=== PATIENT | male | born 1955 | race African-American/Black ===

== ENCOUNTER 2017-03-09 17:20 | Emergency (ER) | payer SELFPAY ==
[~2017-03-09] VITALS: Ht 162.6 cm; Wt 86.1 kg
[2017-03-09 17:25] VITALS: TEMP 36.8; Ht 162.6 cm; Wt 86.1 kg
[2017-03-09] MEDS ORDERED: ACET-1256 PO (18:07)
[2017-03-09 18:41] LABS: BASO % 0.2 %; BASO ABS # 0.01 K/uL (0-0.2); COMPLETE YES; EOS % 1.1 %; HEMATOCRIT 42.5 % (42-52); IG% 0.2 %; LYMPH % 46.5 %; LYMPH ABS # 2.13 K/uL (1.2-3.4); MEAN CELL VOLUME 80.2 fL (80-100); MEAN CORPUSCULAR HEMOGLOBIN 25.8 pg (25-34); MEAN CORPUSCULAR HGB CONC 32.2 g/dl (32-36); MEAN PLATELET VOLUME 11.1 fL (7.4-10.4); MONO % 12.2 %; NEUT % 39.8 %; PLATELET COUNT 187 K/uL (130-400); WHITE BLOOD COUNT 4.58 K/uL (4.8-10.8)
[2017-03-09 18:42] LABS: ALT/SGPT 24 U/L (12-78); BLOOD UREA NITROGEN 10 mg/dl (7-18); BUN/CREATININE RATIO 10.4 (10-20); CARBON DIOXIDE 28 mmol/L (21-32); CHLORIDE 105 mmol/L (98-107); GLUCOSE 85 mg/dl (70-99); POTASSIUM 3.7 mmol/L (3.5-5.1); SODIUM 140 mmol/L (136-145)
[2017-03-09 18:47] LABS: ALB/GLOB RATIO 1.1 (0.9-2); ALKALINE PHOSPHATASE 137 U/L (45-117); AST/SGOT 19 U/L (15-37)
--- NOTE | 2017-03-09 20:11 | DIAGNOSTIC IMAGING REPORT ---
RIGHT UPPER EXTREMITY VENOUS DOPPLER ULTRASOUND CLINICAL HISTORY: Right arm pain. COMPARISON STUDY: No previous studies for comparison. FINDINGS: No deep venous thrombus is identified within the right upper extremity. There is an IV within the right antecubital fossa. IMPRESSION: No deep venous thrombus within the right upper extremity. Electronically signed by: Ralf Carrasco M.D. 03/09/2017 8:10 PM Dictated Date/Time: 03/09/2017 8:09 PM
--- NOTE | 2017-03-09 20:26 | DIAGNOSTIC IMAGING REPORT ---
CHEST 1 VW FRONT-NOT PORTABLE CLINICAL HISTORY: Right arm pain. Right-sided neck pain. COMPARISON STUDY: Chest radiograph April 24, 2016. FINDINGS: Lung volumes are at the lower limits of normal. There is no consolidation to suggest pneumonia and there is no evidence of pulmonary edema. Cardiomediastinal silhouette is unremarkable. Pulmonary vascularity is normal. There is no pneumothorax or pleural effusion. IMPRESSION: No acute cardiopulmonary findings. Electronically signed by: Ralf Carrasco M.D. 03/09/2017 8:25 PM Dictated Date/Time: 03/09/2017 8:24 PM
--- NOTE | 2017-03-09 20:28 | DIAGNOSTIC IMAGING REPORT ---
C-SPINE ROUTINE 4 OR 5 VIEWS CLINICAL HISTORY: Right-sided neck pain. Right arm pain. COMPARISON STUDY: No previous studies for comparison. FINDINGS: There is reversal of the normal cervical lordosis. There is no acute fracture or suspicious lesion within the cervical spine. There is moderate disc space narrowing with osteophytosis at C6-C7. There is mild disc space narrowing with osteophytosis at C5-C6. Prevertebral soft tissues are unremarkable. There is mild multilevel facet arthrosis. IMPRESSION: 1. No acute cervical spine fracture. 2. Moderate degenerative disc disease at C6-C7 and C5-C6. Electronically signed by: Ralf Carrasco M.D. 03/09/2017 8:27 PM Dictated Date/Time: 03/09/2017 8:26 PM
[2017-03-09 20:52] VITALS: BP 138/86; PULSE 54; O2SAT 97
--- NOTE | 2017-03-09 20:55 | EMERGENCY ROOM VISIT NOTE ---
History First contact with patient: 17:32 Chief Complaint: ARM PAIN Stated Complaint: BP CHECK History of Present Illness The patient is a 62 year old male who presents to the Emergency Room with complaints of right arm pain. The patient states that he has had pain in his right forearm and his right shoulder/neck. The pain is constant throughout the day and he rates the discomfort a 9/10. The has increased pain with range of motion of the arm. He states it is difficult to sleep due to the pain. He is concerned that his blood pressure could be elevated. He denies a history of hypertension and does not take any medication for blood pressure. He denies injury to the right arm. He denies any numbness or weakness. He denies chest pain, shortness of breath, abdominal pain, nausea or vomiting. Review of Systems A complete 10 point review of systems was reviewed with the patient with pertinent positives and negatives as per history of present illness. All else were negative. Past Medical/Surgical History Medical Problems: (1) DVT (deep venous thrombosis) Family History No pertinent family history Social History Smoking Status: Never Smoker Housing Status: lives with family Occupation Status: employed Current/Historical Medications Scheduled PRN Acetaminophen (Tylenol), 500 MG PO DIRECTED PRN for Pain Allergies Coded Allergies: POLLEN (Verified Allergy, Intermediate, COUGH, ITCHY EYES, RUNNY NOSE, ) Physical Exam Vital Signs Date Time Temp Pulse Resp B/P (MAP) Pulse Ox O2 Delivery O2 Flow Rate FiO2 03/09/17 20:52 54 20 138/86 97 Room Air 03/09/17 18:57 57 16 131/87 97 Room Air 03/09/17 17:25 36.8 75 18 143/103 95 Room Air Physical Exam VITALS: Vitals are noted on the nurse's note and reviewed by myself. Vital signs stable. GENERAL: This is a 62-year-old male, in no acute distress, nondiaphoretic, well- developed well-nourished. SKIN: No erythema, edema or warmth. HEENT: Normocephalic. PERRLA. EOMI. Nares patent. Mucous membranes moist. Neck is supple without nuchal rigidity. HEART: Regular rate and rhythm without murmurs gallops or rubs. LUNGS: Clear to auscultation bilaterally without wheezes, rales or rhonchi. No retractions or accessory muscle use. MUSCULOSKELETAL: Full range of motion of the right upper extremity. Strength 5/ 5. There is no tenderness to palpation of the right arm. There is tenderness over the right trapezius muscle. NEURO: Patient was alert and oriented to person place and time. Medical Decision & Procedures ER Provider Diagnostic Interpretation: CHEST 1 VW FRONT-NOT PORTABLE FINDINGS: Lung volumes are at the lower limits of normal. There is no consolidation to suggest pneumonia and there is no evidence of pulmonary edema. Cardiomediastinal silhouette is unremarkable. Pulmonary vascularity is normal. There is no pneumothorax or pleural effusion. IMPRESSION: No acute cardiopulmonary findings. C-SPINE ROUTINE 4 OR 5 VIEWS FINDINGS: There is reversal of the normal cervical lordosis. There is no acute fracture or suspicious lesion within the cervical spine. There is moderate disc space narrowing with osteophytosis at C6-C7. There is mild disc space narrowing with osteophytosis at C5-C6. Prevertebral soft tissues are unremarkable. There is mild multilevel facet arthrosis. IMPRESSION: 1. No acute cervical spine fracture. 2. Moderate degenerative disc disease at C6-C7 and C5-C6. RIGHT UPPER EXTREMITY VENOUS DOPPLER ULTRASOUND FINDINGS: No deep venous thrombus is identified within the right upper extremity. There is an IV within the right antecubital fossa. IMPRESSION: No deep venous thrombus within the right upper extremity. Laboratory Results 03/09/17 18:10 Red Blood Count 5.30, Mean Corpuscular Volume 80.2, Mean Corpuscular Hemoglobin 25.8, Mean Corpuscular Hemoglobin Concent 32.2, Mean Platelet Volume 11.1, Neutrophils (%) (Auto) 39.8, Lymphocytes (%) (Auto) 46.5, Monocytes (%) (Auto) 12.2, Eosinophils (%) (Auto) 1.1, Basophils (%) (Auto) 0.2, Neutrophils # (Auto ) 1.82, Lymphocytes # (Auto) 2.13, Monocytes # (Auto) 0.56, Eosinophils # (Auto ) 0.05, Basophils # (Auto) 0.01 03/09/17 18:10 Test 03/09/17 18:10 White Blood Count 4.58 K/uL (4.8-10.8) Red Blood Count 5.30 M/uL (4.7-6.1) Hemoglobin 13.7 g/dL (14.0-18.0) Hematocrit 42.5 % (42-52) Mean Corpuscular Volume 80.2 fL (80-100) Mean Corpuscular Hemoglobin 25.8 pg (25-34) Mean Corpuscular Hemoglobin Concent 32.2 g/dl (32-36) Platelet Count 187 K/uL (130-400) Mean Platelet Volume 11.1 fL (7.4-10.4) Neutrophils (%) (Auto) 39.8 % Lymphocytes (%) (Auto) 46.5 % Monocytes (%) (Auto) 12.2 % Eosinophils (%) (Auto) 1.1 % Basophils (%) (Auto) 0.2 % Neutrophils # (Auto) 1.82 K/uL (1.4-6.5) Lymphocytes # (Auto) 2.13 K/uL (1.2-3.4) Monocytes # (Auto) 0.56 K/uL (0.11-0.59) Eosinophils # (Auto) 0.05 K/uL (0-0.5) Basophils # (Auto) 0.01 K/uL (0-0.2) RDW Standard Deviation 38.1 fL (36.4-46.3) RDW Coefficient of Variation 13.1 % (11.5-14.5) Immature Granulocyte % (Auto) 0.2 % Immature Granulocyte # (Auto) 0.01 K/uL (0.00-0.02) Anion Gap 7.0 mmol/L (3-11) Est Creatinine Clear Calc Drug Dose 75.8 ml/min Estimated GFR () 93.1 Estimated GFR (Non- 80.3 BUN/Creatinine Ratio 10.4 (10-20) Calcium Level 9.0 mg/dl (8.5-10.1) Total Bilirubin 0.3 mg/dl (0.2-1) Aspartate Amino Transf (AST/SGOT) 19 U/L (15-37) Alanine Aminotransferase (ALT/SGPT) 24 U/L (12-78) Alkaline Phosphatase 137 U/L (45-117) Troponin I < 0.015 ng/ml (0-0.045) Total Protein 7.4 gm/dl (6.4-8.2) Albumin 3.8 gm/dl (3.4-5.0) Globulin 3.6 gm/dl (2.5-4.0) Albumin/Globulin Ratio 1.1 (0.9-2) ECG Rate (beats per minute): 55 Rhythm: sinus bradycardia Findings: ST elevation (throughout, consistent with early repolarization) Change: no significant change ED Course The patient was evaluated as above. Labs were drawn and IV access was obtained. Discharge instructions were reviewed with the patient. The patient verbalized understanding of my assessment and treatment plan and was discharged home in good condition. Medical Decision Differential diagnosis includes cervical radiculopathy, tendinitis, DVT, superficial thrombosis, cardiac disease, among others. The patient is a 62-year-old male who presents today complaining of right arm pain with no injury. Labs revealed no leukocytosis, anemia or concerning electrolyte abnormalities. Alkaline phosphatase is elevated. Troponin is not elevated. An ultrasound of the right arm was performed and showed no evidence of DVT. X-rays of the cervical spine did show degenerative disc disease. I feel the patient's symptoms are likely secondary to cervical radiculopathy. He was instructed to follow-up with his primary care provider regarding today's ED visit. The patient's case was reviewed with Dr. Coelho, ED attending physician, who agreed with my assessment and treatment plan. Based on the patient's presentation and work up, I feel the patient is stable for outpatient treatment. The patient was educated to return to the emergency department for any worsening of their current condition or new/concerning symptoms. He will follow up with his PCP. Medication reconciliation: I attest that I have personally reviewed the patient 's current medication list. Blood Pressure Screening: Patient was found to have a slightly elevated blood pressure due to circumstances. I do not believe that the patient requires hypertension monitoring. Impression Primary Impression: Right arm pain Departure Information Dispostion Home / Self-Care Condition GOOD Referrals No Doctor, Assigned (PCP) Patient Instructions My [facility] [employer] [place] Additional Instructions For pain control, you can use the following [id number]-[id number] medicines (if >12 yo): - Regular strength (325mg/tab) Tylenol (acetaminophen) 2 tabs every 4-6 hours as needed. Do not exceed 12 tablets in a 24 hour period. Avoid taking more than 4 grams (4000 mg) of Tylenol per day. This includes any other sources of acetaminophen you may take on a regular basis. - Regular strength (200 mg/tab) Advil (ibuprofen) 1-2 tabs every 4-6 hours as needed. Do not exceed a dose of 3200 mg per day. Follow-up with your primary care provider for further evaluation. Return to the emergency department for any worsening or new/concerning symptoms.
== END 2017-03-09 21:08 | disposition home or self-care (01) ==
LOC: C.EDB 17:21
DX: M79.601 Pain in right arm (principal)

== ENCOUNTER 2017-08-02 16:43 | Observation (INO) | payer SELFPAY ==
[~2017-08-02] VITALS: Ht 160 cm; Wt 71.5 kg
[~2017-08-02 16:43] MED LIST: ACET-1256 PO
[2017-08-02] MEDS ORDERED: LORAZEPAM 2 MG/ML 1 ML VIAL ONE (16:47)
[2017-08-02] MEDS ORDERED: SODIUM CHLORIDE 0.9% 1000ML 1,000 ML IV SCH ×2 (16:49→20:00)
[2017-08-02] MEDS ORDERED: PATIENT'S HEIGHT AND/OR WEIGHT NEEDED SCH (16:50)
[2017-08-02 17:02] LABS: HEMATOCRIT 44.3 % (42-52); MEAN CELL VOLUME 81.3 fL (80-100); MEAN CORPUSCULAR HEMOGLOBIN 26.8 pg (25-34); MEAN PLATELET VOLUME 10.2 fL (7.4-10.4); PLATELET COUNT 191 K/uL (130-400); RED BLOOD COUNT 5.45 M/uL (4.7-6.1); WHITE BLOOD COUNT 6.21 K/uL (4.8-10.8)
--- NOTE | 2017-08-02 17:07 | DIAGNOSTIC IMAGING REPORT ---
CT OF THE HEAD WITHOUT CONTRAST CLINICAL HISTORY: Stroke alert. COMPARISON STUDY: No previous studies for comparison. CT DOSE: 537.48 mGy.cm TECHNIQUE: Helical axial images of the head were obtained without IV contrast. Automated exposure control was utilized for the study. A dose lowering technique was utilized adhering to the principles of ALARA. FINDINGS: No acute intracranial hemorrhage, midline shift or mass effect is present. Ventricular system is normal. Basilar cisterns are patent. There are no extra-axial collections. Akhtar-white differentiation is maintained. There are no findings to suggest acute dural sinus thrombosis or acute territorial infarct. There is moderate mucosal thickening of the left maxillary sinus with an air-fluid level. There is wall thickening of the left maxillary sinus. A 1.4 cm lucent right temporal bone lesion is indeterminate although probably benign. IMPRESSION: 1. No acute intracranial findings. 2. Left maxillary sinusitis, possibly acute on chronic. Electronically signed by: Ralf Carrasco M.D. 08/02/2017 5:05 PM Dictated Date/Time: 08/02/2017 4:59 PM
--- NOTE | 2017-08-02 17:22 | DIAGNOSTIC IMAGING REPORT ---
SINGLE VIEW CHEST CLINICAL HISTORY: Strokelike symptoms. FINDINGS: An AP, portable, upright chest radiograph is compared to study dated 03/09/2017. The examination is degraded by portable technique and apical lordotic positioning. The cardiomediastinal silhouette is normal for projection. There are low lung volumes with bibasilar atelectasis. There is no large pleural effusion or pneumothorax identified. The bony thorax is grossly intact. IMPRESSION: Low lung volumes with bibasilar atelectasis. No acute cardiopulmonary abnormality is seen. Electronically signed by: Elio Bell M.D. 08/02/2017 5:21 PM Dictated Date/Time: 08/02/2017 5:20 PM
[2017-08-02 17:24] LABS: PARTIAL THROMBOPLASTIN RATIO 0.9; PROTHROMBIN TIME (PATIENT) 10.3 SECONDS (9.0-12.0)
[2017-08-02 17:42] LABS: BLOOD UREA NITROGEN 18 mg/dl (7-18); BUN/CREATININE RATIO 11.8 (10-20); CALCIUM 9.1 mg/dl (8.5-10.1); CARBON DIOXIDE 28 mmol/L (21-32); CHLORIDE 102 mmol/L (98-107); CREATININE 1.48 mg/dl (0.60-1.40); GLUCOSE 158 mg/dl (70-99); SODIUM 138 mmol/L (136-145)
[2017-08-02] MEDS ORDERED: FEXO-101 PO (17:46)
[2017-08-02 17:49] LABS: POTASSIUM 3.6 mmol/L (3.5-5.1)
[2017-08-02 17:56] LABS: CKMB/CK RATIO 1.4 (0-3.0); MAGNESIUM 2.3 mg/dl (1.8-2.4)
[2017-08-02] MEDS ORDERED: OPTIRAY 320 IV PRN (18:30)
[2017-08-02 18:31] LABS: EOSINOPHIL % 3.5 %; LARGE GRANULAR LYMPH ABSOLUTE 0.92 K/uL; LARGE GRANULAR LYMPHOCYTE % 14.8 %; LYMPH ABS # 2.75 K/uL (1.2-3.4); LYMPHOCYTE % 44.3 %; NEUTROPHILS % 22.6 %
[2017-08-02] MEDS ORDERED: ASPIRIN 324 MG CHEW PO STA (18:37)
--- NOTE | 2017-08-02 18:40 | History and Physical ---
History & Physical Date & Time of Service: Aug 02, 2017 at 18:40 Chief Complaint: Stroke Alert Primary Care Physician: [facility] History of Present Illness Source: family (niece ), hospital records (ER document ) This is a 62 yo M with no known medical hx Speaks in Creole Language only , is brought to ER by Niece as pt was found not able to talk History obtained mainly form the Niece over phone, as pt was not able to communicated, was also very somnolent ( given Ativan earlier for severe anxiety ) Per Niece -at baseline pt is very active, works as a housekeeping in [employer] this morning -pt reported that he was not feeling well , feeling dizzy , called niece over phone -that he was having difficulty speaking Pt complained of double vision , flashing lights , had tremors , shaking of both legs no tongue biting , no bowel or bladder incontinence , could not articulate words -later he explained the as if his tongue was stick to bottom In ER ' Stroke Alert was called , pt evaluated by [facility] stroke unit -pt was able to move hands , and legs , still was having significant dysarthria no report of Headache thought of be either TIA vs Seizure CT head was negative , CTA angiogram of brain and neck -no pathology noted later pt was able to talk and articulate, per niece -no confusion was noted , was able to converse appropriately , got very anxious requiring Ativan Past Medical/Surgical History Medical Problems: (1) DVT (deep venous thrombosis) Status: Resolved Family History No pertinent family history Social History Smoking Status: Unknown if Ever Smoked Occupational Status: employed Allergies Coded Allergies: POLLEN (Verified Allergy, Intermediate, COUGH, ITCHY EYES, RUNNY NOSE, ) No Known Drug Allergy (Unverified Allergy, Unknown, N/A, 08/02/17) Home Medications Scheduled PRN Fexofenadine HCl (Allergy 24-Hr), 180 MG PO DAILY PRN for ALLERGIC REACTION Review of Systems UNABLE TO OBTAIN DUE TO LANGUAGE BARRIER , PT WAS VERY SOMNOLENT DUE TO ATIVAN Physical Exam Vital Signs Date Time Temp Pulse Resp B/P (MAP) Pulse Ox O2 Delivery O2 Flow Rate FiO2 08/02/17 18:13 87 13 93 Room Air 08/02/17 18:08 86 13 94 Room Air 08/02/17 18:03 85 15 92 Room Air 08/02/17 18:01 140/96 Room Air 08/02/17 17:58 96 19 94 Room Air 08/02/17 17:53 101 19 92 Room Air 08/02/17 17:48 89 18 94 Room Air 08/02/17 17:46 138/91 Room Air 08/02/17 17:43 88 15 94 Room Air 08/02/17 17:38 89 13 93 Room Air 08/02/17 17:33 83 16 92 Room Air 08/02/17 17:31 84 19 125/86 92 Room Air 08/02/17 17:31 125/86 08/02/17 17:28 86 15 92 08/02/17 17:23 88 17 91 Room Air 08/02/17 17:21 92 08/02/17 17:18 134/88 08/02/17 16:59 36.4 102 28 138/102 96 Room Air 08/02/17 16:57 Room Air General Appearance: no apparent distress, + pertinent finding (VERY DOWSY , SOMNOLENT , OPENES EYES BRIEFLY THEN FALLS TO SLEEP ) Head: normocephalic, atraumatic Eyes: + pertinent finding (UNABLE TO EXAMINE -PT WAS DROWSY , COULD NOT KEEP EYES OPEN ) ENT: hearing grossly normal Neck: thyroid normal Respiratory/Chest: lungs clear, normal breath sounds, no respiratory distress Cardiovascular: regular rate, rhythm, no edema Abdomen/GI: normal bowel sounds, soft Extremities/Musculoskelatal: normal capillary refill, no pedal edema, + pertinent finding (MOVING ALL EXTREMITIES ) Neurologic/Psych: + pertinent finding (SOMNOLENT , MOVING ALL EXTREMITITES , ) Diagnostics Laboratory Results Results Past 24 Hours Test 08/02/17 16:49 08/02/17 16:51 08/02/17 17:03 08/02/17 18:27 Range/Units White Blood Count 6.21 4.8-10.8 K/uL Red Blood Count 5.45 4.7-6.1 M/uL Hemoglobin 14.6 14.0-18.0 g/dL Hematocrit 44.3 42-52 % Mean Corpuscular Volume 81.3 80-100 fL Mean Corpuscular Hemoglobin 26.8 25-34 pg Mean Corpuscular Hemoglobin Concent 33.0 32-36 g/dl Platelet Count 191 130-400 K/uL Mean Platelet Volume 10.2 7.4-10.4 fL RDW Standard Deviation 38.2 36.4-46.3 fL RDW Coefficient of Variation 12.9 11.5-14.5 % Neutrophils % (Manual) 22.6 % Lymphocytes % (Manual) 44.3 % Variant Lymphocytes % (manual) 5.2 % Monocytes % (Manual) 8.7 % Eosinophils % (Manual) 3.5 % Blast Cells % 0.9 % Neutrophils # (Manual) 1.40 1.4-6.5 K/uL Total Absolute Neutrophils 1.40 1.4-6.5 K/uL Lymphocytes # (Manual) 2.75 1.2-3.4 K/uL Absolute Variant Lymphocytes 0.32 K/uL Total Absolute Lymphocytes 3.99 1.2-3.4 K/uL Monocytes # (Manual) 0.54 0.11-0.59 K/uL Eosinophils # (Manual) 0.22 0-0.5 K/uL Percent Large Granular Lymphocytes 14.8 % Absolute Large Granular Lymphocytes 0.92 K/uL Blast Cells # 0.06 0-0 K/uL Red Blood Cell Morphology Unremarkable Prothrombin Time 10.3 9.0-12.0 SECONDS Prothromb Time International Ratio 1.0 0.9-1.1 Activated Partial Thromboplast Time 23.3 21.0-31.0 SECONDS Partial Thromboplastin Ratio 0.9 Sodium Level 138 136-145 mmol/L Potassium Level 3.6 3.5-5.1 mmol/L Chloride Level 102 98-107 mmol/L Carbon Dioxide Level 28 21-32 mmol/L Anion Gap 8.0 3-11 mmol/L Blood Urea Nitrogen 18 7-18 mg/dl Creatinine 1.48 0.60-1.40 mg/dl Est Creatinine Clear Calc Drug Dose 46.8 ml/min Estimated GFR () 57.9 Estimated GFR (Non- 50.0 BUN/Creatinine Ratio 11.8 10-20 Random Glucose 158 70-99 mg/dl Calcium Level 9.1 8.5-10.1 mg/dl Magnesium Level 2.3 1.8-2.4 mg/dl Total Creatine Kinase 320 39-308 U/L Creatine Kinase MB 4.5 0.5-3.6 ng/ml Creatine Kinase MB Ratio 1.4 0-3.0 Troponin I < 0.015 0-0.045 ng/ml Chemistry Specimen Hemolysis Bedside Prothrombin Time INR 1.0 0.9-1.[address] HEAD WITH OUT CONTRAST : IMPRESSION: 1. No acute intracranial findings. 2. Left maxillary sinusitis, possibly acute on chronic. CHEST XRAY : IMPRESSION: Low lung volumes with bibasilar atelectasis. No acute cardiopulmonary abnormality is seen. CT ANGIOGRAM OF HEAD AND NECK : IMPRESSION: 1. There is no evidence of hemorrhage, mass effect, or acute territorial ischemia by CT criteria. 2. Unremarkable CT angiogram of the brain. 3. Unremarkable CT angiogram of the neck. The vertebral arteries are widely patent and codominant. 4. Left maxillary sinus disease as above. EKG Vent. rate 80 BPM RI interval 150 ms QRS duration 88 ms QT/QTc 386/445 ms P-R-T axes 55 2 11 Normal sinus rhythm Minimal voltage criteria for LVH, may be normal variant Borderline ECG When compared with ECG of 09-MAR-2017 18:32, QT has lengthened Impression Assessment and Plan TIA VS SEIZURE : presented with sudden loss of articulation, blurred vision , flashing lights , tremor in extremities his symptoms improved later complex migraine ??-reports of vision change/no prior hx of Migraine , no complain of headache as per Niece no prior hx of CVA -no family hx of stroke or CAD as per niece pt does not smoke ordered for Fasting lipid panel , TSH , HbA1c to risk stratification neuroimaging -negative for CVA so far CTA angiogram of Head and Neck ; Unremarkable CTA of brain , The vertebral arteries are widely patent and codominant. R/O Sz -ordered for EEG monitor neuro checks Neurology eval requested SIGRID : Cr elevated 1.6 possible due to dehydration no reports of diarrhea or nausea /vomiting IVF with NSS follow PRP FULL CODE DVT PROPHYLAXIS : sub q heparin DISPOSITION : expected to be discharged home when medically stable Medicine follow up with [facility] Level of Care Telemetry Resuscitation Status FULL RESUSCITATION VTE Prophylaxis VTE Risk Assessment Done? Y/N: Yes Risk Level: Moderate Given or contraindicated: T.E.D. Stockings, SCD's
--- NOTE | 2017-08-02 18:55 | DIAGNOSTIC IMAGING REPORT ---
CT ANGIOGRAM OF THE BRAIN; CT ANGIOGRAM OF THE NECK CLINICAL HISTORY: Strokelike symptoms. COMPARISON STUDY: Unenhanced CT scan of the brain dated 08/02/2017. TECHNIQUE: Following the IV administration of 115 of Optiray 320, CT angiogram of the head and neck was performed from the aortic arch to the vertex. Images are reviewed in the axial, sagittal, and coronal planes. 3-D MIPS images are created and assessed. IV contrast was administered without complication. All measurements were calculated based on NASCET criteria. A dose lowering technique was utilized adhering to the principles of ALARA. CT DOSE: 548.29 mGy.cm FINDINGS: Brain parenchyma: The brain parenchyma is normal in appearance. There is no hemorrhage, mass effect, or evidence of acute territorial ischemia by CT criteria. There is no evidence of enhancing mass lesion on the angiogram phase images. The ventricles, sulci, and cisterns are normal in configuration. Akhtar-white matter differentiation is preserved. No extra-axial fluid collection is seen. Thoracic aorta: Visualized portions of the thoracic aorta are normal in caliber. The aortic arch demonstrates standard 3-vessel anatomy. Right carotid arterial system: The right common carotid artery is widely patent, as are the right internal and external carotid arteries. Left carotid arterial system: The left common carotid artery is widely patent, as are the left internal and external carotid arteries. Vertebral arteries: Subclavian arteries: Widely patent bilaterally. Intracranial vasculature: The internal carotid arteries are patent at the skull base, as are the anterior and middle cerebral arteries bilaterally. The vertebrobasilar system and posterior cerebral arteries are widely patent. The vertebral arteries are codominant. There is no aneurysm, high-grade stenosis, or focal vessel cut off seen throughout the intracranial circulation. Jugular veins: Widely patent bilaterally. Dural sinuses: Patent. Lung apices: Partially visualized upper lobe lung parenchyma appears clear. Soft tissues: The visualized pharyngeal soft tissues are normal in appearance noting angiographic phase technique. The oropharyngeal airway appears widely patent. The salivary and thyroid glands are normal in appearance. No cervical lymphadenopathy is seen. Orbits: The bony orbits are grossly intact. Orbital contents are normal in appearance. Skeletal structures: The calvarium appears maintained. The cervical spine is intact noting mild spondylotic change. Sinuses and mastoids: There is subtotal opacification of the left maxillary antrum. The remaining paranasal sinuses are clear. The mastoid air cells are well pneumatized. IMPRESSION: 1. There is no evidence of hemorrhage, mass effect, or acute territorial ischemia by CT criteria. 2. Unremarkable CT angiogram of the brain. 3. Unremarkable CT angiogram of the neck. The vertebral arteries are widely patent and codominant. 4. Left maxillary sinus disease as above. Electronically signed by: Elio Bell M.D. 08/02/2017 6:54 PM Dictated Date/Time: 08/02/2017 6:47 PM
[2017-08-02] MEDS ORDERED: ONDANSETRON INJ 2 MG/ML 2 ML VIAL IV PRN (19:00)
[2017-08-02] MEDS ORDERED: IV FLUIDS COMPLETED PRN (19:00)
[2017-08-02] MEDS ORDERED: FEXOFENADINE HCL 180 MG TAB PO PRN (19:00)
[2017-08-02] MEDS ORDERED: ACETAMINOPHEN 325 MG TAB PO PRN (19:00)
[2017-08-02] MEDS ORDERED: PHARMACIST DISCHARGE MED REC CONSULT PRN (19:00)
[2017-08-02] MEDS ORDERED: ALUMINUM/MAGNESIUM/SIMETH (MAALOX MAX) 30 ML UDC PO PRN (19:00)
[2017-08-02] MEDS ORDERED: MAGNESIUM HYDROXIDE SUSP 30 ML UDC PO PRN (19:00)
[2017-08-02] MEDS ORDERED: POLYETHYLENE (MIRALAX) 17 GM PACK PO PRN (19:00)
[2017-08-02] MEDS ORDERED: ZOLPIDEM TARTRATE 5 MG TAB PO PRN (19:00)
[2017-08-02] MEDS ORDERED: NITROGLYCERIN 0.4 MG SL PER TAB CHARGE SL PRN (19:00)
[2017-08-02 19:42] VITALS: BP 142/86; PULSE 83; TEMP 36.2; O2SAT 97
--- NOTE | 2017-08-02 20:24 | EMERGENCY ROOM VISIT NOTE ---
History Report prepared by Ana: Gabriel Montoya Under the Supervision of: Dr. Steve Og M.D. First contact with patient: 16:49 Chief Complaint: STROKE SYMPTOMS Stated Complaint: STROKE ALERT History of Present Illness The patient is a 62 year old male who presents to the Emergency Room with altered mental status, specifically an inability to speak, that began 40 minutes ago. This HPI is limited secondary to the patient's altered mental status. The patient's niece is attempting to communicate with him secondary to the Creole language barrier. At this time, the patient was at work at began to feel very dizzy. He called his niece saying that he was not feeling well and asked her to pick him up. When she arrived, he was unable to speak and making strange noises. Upon arrival to the ER, the patient is unable to speak but can nod or shake his head to answer yes or no questions. He is not experiencing any pain or numbness at this time. However, he cannot move any of his extremities. He does not have a known medical history of seizures or any medical problems. He also has never acted like this before. He does not using illicit drugs, over the counter medications, herbal supplements, alcohol, or tobacco products. His niece states that he was fine this morning and the past few days as well. He does not have a history of mental health problems. Source of History: patient, family, EMS History Limited By: AMS, language, aphasia Onset: 40 minutes ago Position: other (Global) Symptom Intensity: severe Quality: other (Inability to speak) Timing: constant Associated Symptoms: + weakness (all four extremities), No numbness Review of Systems ROS limited due to mental status. Past Medical & Surgical Medical Problems: (1) DVT (deep venous thrombosis) (2) TIA (transient ischemic attack) Family History No pertinent family history Social History Smoking Status: Never Smoker Smokeless Tobacco Use: No Alcohol Use: none Drug Use: none Housing Status: lives with family Occupation Status: employed Current/Historical Medications Scheduled PRN Fexofenadine HCl (Allergy 24-Hr), 180 MG PO DAILY PRN for ALLERGIC REACTION Allergies Coded Allergies: POLLEN (Verified Allergy, Intermediate, COUGH, ITCHY EYES, RUNNY NOSE, ) No Known Drug Allergy (Unverified Allergy, Unknown, N/A, 08/02/17) Physical Exam Vital Signs Date Time Temp Pulse Resp B/P (MAP) Pulse Ox O2 Delivery O2 Flow Rate FiO2 08/02/17 18:13 87 13 93 Room Air 08/02/17 18:08 86 13 94 Room Air 08/02/17 18:03 85 15 92 Room Air 08/02/17 18:01 140/96 Room Air 08/02/17 17:58 96 19 94 Room Air 08/02/17 17:53 101 19 92 Room Air 08/02/17 17:48 89 18 94 Room Air 08/02/17 17:46 138/91 Room Air 08/02/17 17:43 88 15 94 Room Air 08/02/17 17:38 89 13 93 Room Air 08/02/17 17:33 83 16 92 Room Air 08/02/17 17:31 84 19 125/86 92 Room Air 08/02/17 17:31 125/86 08/02/17 17:28 86 15 92 08/02/17 17:23 88 17 91 Room Air 08/02/17 17:21 92 08/02/17 17:18 134/88 08/02/17 16:59 36.4 102 28 138/102 96 Room Air 08/02/17 16:57 Room Air Physical Exam Constitutional: Vital signs reviewed. The patient appears very anxious and is quivering his lips and moaning. Eyes: Pupils are equal round reactive to light. Conjunctiva are noninjected. ENT: Pharynx is clear without erythema or exudate. Mucous membranes are moist. Neck supple without meningeal signs. Respiratory: Clear to auscultation bilaterally. Breath sounds are equal bilaterally. Cardiovascular: Regular rate and rhythm. No rubs or gallops. GI: Soft, nondistended and nontender. Bowel sounds are present. Musculoskeletal: No peripheral edema. No lower extremity tenderness. Integumentary: No cyanosis. Neurological: The patient is awake and alert. Does not follow commands other than opening her eyes. He drops all extremities when lifted. He does withdraw from pain. Sensation is intact throughout his extremities. No facial droop is noted. Psychiatric: Appears very anxious. Medical Decision & Procedures ER Provider Diagnostic Interpretation: Radiology results as stated below per my review and the radiologist's interpretation: CT OF THE HEAD WITHOUT CONTRAST CLINICAL HISTORY: Stroke alert. COMPARISON STUDY: No previous studies for comparison. CT DOSE: 537.48 mGy.cm TECHNIQUE: Helical axial images of the head were obtained without IV contrast. Automated exposure control was utilized for the study. A dose lowering technique was utilized adhering to the principles of ALARA. FINDINGS: No acute intracranial hemorrhage, midline shift or mass effect is present. Ventricular system is normal. Basilar cisterns are patent. There are no extra-axial collections. Akhtar-white differentiation is maintained. There are no findings to suggest acute dural sinus thrombosis or acute territorial infarct. There is moderate mucosal thickening of the left maxillary sinus with an air-fluid level. There is wall thickening of the left maxillary sinus. A 1.4 cm lucent right temporal bone lesion is indeterminate although probably benign. IMPRESSION: 1. No acute intracranial findings. 2. Left maxillary sinusitis, possibly acute on chronic. Electronically signed by: Ralf Carrasco M.D. 08/02/2017 5:05 PM Dictated Date/Time: 08/02/2017 4:59 PM SINGLE VIEW CHEST CLINICAL HISTORY: Strokelike symptoms. FINDINGS: An AP, portable, upright chest radiograph is compared to study dated 03/09/2017. The examination is degraded by portable technique and apical lordotic positioning. The cardiomediastinal silhouette is normal for projection. There are low lung volumes with bibasilar atelectasis. There is no large pleural effusion or pneumothorax identified. The bony thorax is grossly intact. IMPRESSION: Low lung volumes with bibasilar atelectasis. No acute cardiopulmonary abnormality is seen. Electronically signed by: Elio Bell M.D. 08/02/2017 5:21 PM Dictated Date/Time: 08/02/2017 5:[address] ANGIOGRAM OF THE BRAIN; CT ANGIOGRAM OF THE NECK CLINICAL HISTORY: Strokelike symptoms. COMPARISON STUDY: Unenhanced CT scan of the brain dated 08/02/2017. TECHNIQUE: Following the IV administration of 115 of Optiray 320, CT angiogram of the head and neck was performed from the aortic arch to the vertex. Images are reviewed in the axial, sagittal, and coronal planes. 3-D MIPS images are created and assessed. IV contrast was administered without complication. All measurements were calculated based on NASCET criteria. A dose lowering technique was utilized adhering to the principles of ALARA. CT DOSE: 548.29 mGy.cm FINDINGS: Brain parenchyma: The brain parenchyma is normal in appearance. There is no hemorrhage, mass effect, or evidence of acute territorial ischemia by CT criteria. There is no evidence of enhancing mass lesion on the angiogram phase images. The ventricles, sulci, and cisterns are normal in configuration. Akhtar-white matter differentiation is preserved. No extra-axial fluid collection is seen. Thoracic aorta: Visualized portions of the thoracic aorta are normal in caliber. The aortic arch demonstrates standard 3-vessel anatomy. Right carotid arterial system: The right common carotid artery is widely patent, as are the right internal and external carotid arteries. Left carotid arterial system: The left common carotid artery is widely patent, as are the left internal and external carotid arteries. Vertebral arteries: Subclavian arteries: Widely patent bilaterally. Intracranial vasculature: The internal carotid arteries are patent at the skull base, as are the anterior and middle cerebral arteries bilaterally. The vertebrobasilar system and posterior cerebral arteries are widely patent. The vertebral arteries are codominant. There is no aneurysm, high-grade stenosis, or focal vessel cut off seen throughout the intracranial circulation. Jugular veins: Widely patent bilaterally. Dural sinuses: Patent. Lung apices: Partially visualized upper lobe lung parenchyma appears clear. Soft tissues: The visualized pharyngeal soft tissues are normal in appearance noting angiographic phase technique. The oropharyngeal airway appears widely patent. The salivary and thyroid glands are normal in appearance. No cervical lymphadenopathy is seen. Orbits: The bony orbits are grossly intact. Orbital contents are normal in appearance. Skeletal structures: The calvarium appears maintained. The cervical spine is intact noting mild spondylotic change. Sinuses and mastoids: There is subtotal opacification of the left maxillary antrum. The remaining paranasal sinuses are clear. The mastoid air cells are well pneumatized. IMPRESSION: 1. There is no evidence of hemorrhage, mass effect, or acute territorial ischemia by CT criteria. 2. Unremarkable CT angiogram of the brain. 3. Unremarkable CT angiogram of the neck. The vertebral arteries are widely patent and codominant. 4. Left maxillary sinus disease as above. Electronically signed by: Elio Bell M.D. 08/02/2017 6:54 PM Dictated Date/Time: 08/02/2017 6:[address] ANGIOGRAM OF THE BRAIN; CT ANGIOGRAM OF THE NECK CLINICAL HISTORY: Strokelike symptoms. COMPARISON STUDY: Unenhanced CT scan of the brain dated 08/02/2017. TECHNIQUE: Following the IV administration of 115 of Optiray 320, CT angiogram of the head and neck was performed from the aortic arch to the vertex. Images are reviewed in the axial, sagittal, and coronal planes. 3-D MIPS images are created and assessed. IV contrast was administered without complication. All measurements were calculated based on NASCET criteria. A dose lowering technique was utilized adhering to the principles of ALARA. CT DOSE: 548.29 mGy.cm FINDINGS: Brain parenchyma: The brain parenchyma is normal in appearance. There is no hemorrhage, mass effect, or evidence of acute territorial ischemia by CT criteria. There is no evidence of enhancing mass lesion on the angiogram phase images. The ventricles, sulci, and cisterns are normal in configuration. Akhtar-white matter differentiation is preserved. No extra-axial fluid collection is seen. Thoracic aorta: Visualized portions of the thoracic aorta are normal in caliber. The aortic arch demonstrates standard 3-vessel anatomy. Right carotid arterial system: The right common carotid artery is widely patent, as are the right internal and external carotid arteries. Left carotid arterial system: The left common carotid artery is widely patent, as are the left internal and external carotid arteries. Vertebral arteries: Subclavian arteries: Widely patent bilaterally. Intracranial vasculature: The internal carotid arteries are patent at the skull base, as are the anterior and middle cerebral arteries bilaterally. The vertebrobasilar system and posterior cerebral arteries are widely patent. The vertebral arteries are codominant. There is no aneurysm, high-grade stenosis, or focal vessel cut off seen throughout the intracranial circulation. Jugular veins: Widely patent bilaterally. Dural sinuses: Patent. Lung apices: Partially visualized upper lobe lung parenchyma appears clear. Soft tissues: The visualized pharyngeal soft tissues are normal in appearance noting angiographic phase technique. The oropharyngeal airway appears widely patent. The salivary and thyroid glands are normal in appearance. No cervical lymphadenopathy is seen. Orbits: The bony orbits are grossly intact. Orbital contents are normal in appearance. Skeletal structures: The calvarium appears maintained. The cervical spine is intact noting mild spondylotic change. Sinuses and mastoids: There is subtotal opacification of the left maxillary antrum. The remaining paranasal sinuses are clear. The mastoid air cells are well pneumatized. IMPRESSION: 1. There is no evidence of hemorrhage, mass effect, or acute territorial ischemia by CT criteria. 2. Unremarkable CT angiogram of the brain. 3. Unremarkable CT angiogram of the neck. The vertebral arteries are widely patent and codominant. 4. Left maxillary sinus disease as above. Electronically signed by: Elio Bell M.D. 08/02/2017 6:54 PM Dictated Date/Time: 08/02/2017 6:47 PM Laboratory Results 08/02/17 16:51 Red Blood Count 5.45, Mean Corpuscular Volume 81.3, Mean Corpuscular Hemoglobin 26.8, Mean Corpuscular Hemoglobin Concent 33.0, Mean Platelet Volume 10.2 08/02/17 16:51 Test 08/02/17 16:51 08/02/17 17:03 White Blood Count 6.21 K/uL (4.8-10.8) Red Blood Count 5.45 M/uL (4.7-6.1) Hemoglobin 14.6 g/dL (14.0-18.0) Hematocrit 44.3 % (42-52) Mean Corpuscular Volume 81.3 fL (80-100) Mean Corpuscular Hemoglobin 26.8 pg (25-34) Mean Corpuscular Hemoglobin Concent 33.0 g/dl (32-36) Platelet Count 191 K/uL (130-400) Mean Platelet Volume 10.2 fL (7.4-10.4) RDW Standard Deviation 38.2 fL (36.4-46.3) RDW Coefficient of Variation 12.9 % (11.5-14.5) Neutrophils % (Manual) 22.6 % Lymphocytes % (Manual) 44.3 % Variant Lymphocytes % (manual) 5.2 % Monocytes % (Manual) 8.7 % Eosinophils % (Manual) 3.5 % Blast Cells % 0.9 % Neutrophils # (Manual) 1.40 K/uL (1.4-6.5) Total Absolute Neutrophils 1.40 K/uL (1.4-6.5) Lymphocytes # (Manual) 2.75 K/uL (1.2-3.4) Absolute Variant Lymphocytes 0.32 K/uL Total Absolute Lymphocytes 3.99 K/uL (1.2-3.4) Monocytes # (Manual) 0.54 K/uL (0.11-0.59) Eosinophils # (Manual) 0.22 K/uL (0-0.5) Percent Large Granular Lymphocytes 14.8 % Absolute Large Granular Lymphocytes 0.92 K/uL Blast Cells # 0.06 K/uL (0-0) Red Blood Cell Morphology Unremarkable Prothrombin Time 10.3 SECONDS (9.0-12.0) Prothromb Time International Ratio 1.0 (0.9-1.1) Activated Partial Thromboplast Time 23.3 SECONDS (21.0-31.0) Partial Thromboplastin Ratio 0.9 Anion Gap 8.0 mmol/L (3-11) Est Creatinine Clear Calc Drug Dose 46.8 ml/min Estimated GFR () 57.9 Estimated GFR (Non- 50.0 BUN/Creatinine Ratio 11.8 (10-20) Calcium Level 9.1 mg/dl (8.5-10.1) Magnesium Level 2.3 mg/dl (1.8-2.4) Total Creatine Kinase 320 U/L (39-308) Creatine Kinase MB 4.5 ng/ml (0.5-3.6) Creatine Kinase MB Ratio 1.4 (0-3.0) Troponin I < 0.015 ng/ml (0-0.045) Chemistry Specimen Hemolysis Bedside Prothrombin Time INR 1.0 (0.9-1.1) Laboratory results as reviewed by me. Medications Administered Medications (Trade) Dose Ordered Sig/Alex Route Start Time Stop Time Status Last Admin Dose Admin Miscellaneous Information (Patient'S Height And/Or Weight Needed) 1 ea Q15M N/A 08/02/17 16:50 08/02/17 17:24 DC 08/02/17 16:50 1 EA Lorazepam (Ativan Inj) 2 mg STK-MED ONCE .ROUTE 08/02/17 16:47 08/02/17 16:48 DC 08/02/17 17:11 2 MG Sodium Chloride 1,000 ml @ 50 mls/hr Q20H IV 08/02/17 16:49 08/02/17 19:44 DC 08/02/17 17:17 50 MLS/HR ECG Indication: other (Neurologic Symptoms) Rate (beats per minute): 80 Rhythm: normal sinus Findings: no ectopy, other (Hyperacute t-wave in V2 only, LVH) ED Course 1649: The patient was evaluated in room B1. A complete history and physical exam was performed. 1713: I spoke with the patient's niece at this time and attempted to talk with the patient again. He continues to be unable to talk or is unwilling to talk. He moves his fingers spontaneously without asking him to do so. When asked, he will not move his fingers. 1726: Dr. Hale of [facility] with evaluate the patient. The patient has not had a change to his condition. 180: The patient is still being evaluated by Dr. Hale. 1824: Dr. Hale and I discussed the patient's case. He believes that is could be functional and he cannot fully rule out a stoke. He recommended a CTA or MRA and testing for folate and B12 deficiency. 183: [facility] We discussed the patient and his results. The patient will be further evaluated by her for further management and care. 1859: I spoke with the patient's niece again and reevaluated the patient. He is doing significantly better than previously. He is now moving all four extremities and talking with his niece. I discussed his test results with his niece. She states that his symptoms started as tingling to his feet with shaking which then went away. Medical Decision This is a 62-year-old male who presents with change in mental status. Differential diagnosis includes intracranial hemorrhage, intracranial mass, metabolic derangement, toxidrome, TIA, conversion disorder. I did perform a limited focused review of portions of the patient's old chart on the electronic medical record. The patient has had no recent pertinent visits to this hospital. Prehospital medical command was given for the patient. A stroke alert was called. I did evaluate the patient immediately on arrival as noted above. I did obtain history from the paramedics as well as his niece who is translating for us. The patient is moving his head significantly and quivering and anxious. His exam is somewhat contradictory as he states he cannot move his arms and legs but he withdraws his arm from pain. He also moves his fingers randomly. IV access was established. I did treat him with Ativan 0.5 mg IV. The patient was placed on a continuous dried fruit washer. I did order a CT of the head. I did review the images myself as well as the radiology report as described above. There is no evidence of acute intracranial hemorrhage or CVA. I did order and personally review the patient's 12-lead EKG and chest x-ray as described above. I did order and review the patient's blood work as noted in the electronic medical record. Creatinine is slightly elevated. I did discuss the case with the [facility] neurologist electronics supervisor. He did evaluate the patient via telemedicine. He did feel that possibly this could be a functional problem but recommended CT angiogram of the head and neck. He is aware of the patient's elevated creatinine. I did go ahead and ordered the CT angiogram which was unremarkable. I did reassess the patient multiple times. He has had significant improvement of his symptoms. He was able to talk and move his extremities. I did discuss case with the hospitalist and pillowcase maker. Medication Reconcilliation Current Medication List: was personally reviewed by me Blood Pressure Screening Patient's blood pressure: Elevated blood pressure Blood pressure disposition: Elevated BP felt to be situational Consults Time Called: 1720 Consulting Physician: Dr. Alexia Varela [place] Returned Call: [phone] He will evaluate the patient via telestroke. Additional Consults: Time Called: 182 Consulted Physician: Dr. Alexia Varela [place] Returned Call: 182 Additional Comments: We discussed the patient's case. He believes that is could be functional and he cannot fully rule out a stoke. He recommended a CTA or MRA and testing for folate and B12 deficiency. Time Called: 183 Consulted Physician: Dr. Jeovany [place] Hospitalist Returned Call: [phone] Additional Comments: She will evaluate the patient for further management and care. Impression Primary Impression: Expressive aphasia Additional Impression: Neurological symptoms Scribe Attestation The scribe's documentation has been prepared under my direct and personally reviewed by me in its entirety. I confirm that the note above accurately reflects all work, treatment, procedures, and medical decision making performed by me. Departure Information Dispostion Being Evaluated By Hospitalist Referrals [facility] (PCP) Patient Instructions My [facility] Problem Qualifiers
[2017-08-02 21:27] VITALS: BP 142/86; PULSE 83; TEMP 36.2; O2SAT 96; Ht 160 cm; Wt 71.5 kg
[2017-08-02] MEDS: HEPARIN SOD 5000 UNIT/0.5 ML CARP SQ SCH (22:19)
[2017-08-02] MEDS ORDERED: PNEUMOCOCCAL ADMINISTRATION CHARGE ONE (23:00)
[2017-08-02] MEDS ORDERED: PNEUMOCOCCAL POLYSACCHARIDES 25 MCG/0.5 ML VIAL/SYR IM. ONE (23:00)
[2017-08-03 00:05] VITALS: BP 132/82; PULSE 66; O2SAT 96
[2017-08-03 04:15] VITALS: BP 131/84; PULSE 63; TEMP 36.4; O2SAT 99
[2017-08-03 06:39] LABS: ESTIMATED AVERAGE GLUCOSE 143 mg/dl; HA1C FLAG Normal (Normal)
[2017-08-03] MEDS: HEPARIN SOD 5000 UNIT/0.5 ML CARP SQ SCH ×3 (06:49→20:58)
[2017-08-03 07:16] VITALS: BP 118/74; PULSE 67; TEMP 36.9; O2SAT 95
[2017-08-03 07:50] LABS: BUN/CREATININE RATIO 17.2 (10-20); CALCIUM 8.3 mg/dl (8.5-10.1); CREATININE 0.94 mg/dl (0.60-1.40); POTASSIUM 3.9 mmol/L (3.5-5.1)
[2017-08-03 07:55] LABS: CHOLESTEROL/HDL RATIO 4.2
[2017-08-03 08:21] LABS: URINE APPEARANCE CLEAR (CLEAR); URINE BILIRUBIN NEG (NEG); URINE COLOR YELLOW; URINE NITRITE NEG (NEG); URINE PH 5.5 (4.5-7.5); UROBILINOGEN NEG (NEG); ZZUR CULT IF INDIC CLEAN CATCH NO
[2017-08-03 08:29] LABS: MANUAL MICROSCOPIC REQUIRED? NO; REVIEW REQ? NO
[2017-08-03] MEDS: ASPIRIN 81 MG ECTAB PO SCH (08:33)
[2017-08-03 08:45] LABS: BENZODIAZEPINE, URINE NEG (NEG); COCAINE,URINE NEG (NEG); PHENCYCLIDINE, URINE NEG (NEG)
--- NOTE | 2017-08-03 11:50 | Progress Note ---
Medicine Progress Note Date & Time of Visit: Aug 03, 2017 at 11:38. Subjective Pt was seen and examined Lying in bed with no distress Pt said that he continue to have a hard time to articulate He said that he has been going on since yesterday He was able to write his niece phone number with no difficulty holding the pen Hand writing was very legible I talked to his niece today over the phone Niece said that pt does not have any hx of stuttering Niece said that before everything his speech was fluent Pt said that about a few weeks ago he had to wear an Holter monitor that showed no arrhythmia He was `frustrated this morning because he is having a hard time to speak He does not follow with [facility] provider Denies any chest pain, palpitation, dizziness, SOB Objective Last 8 Hrs Date Time Temp Pulse Resp B/P (MAP) Pulse Ox O2 Delivery O2 Flow Rate FiO2 08/03/17 08:00 Room Air 08/03/17 07:16 36.9 67 18 118/74 (89) 95 Room Air 08/03/17 04:15 36.4 63 17 131/84 (100) 99 Room Air 08/03/17 04:00 Room Air Physical Exam: General- No acute distress, very anxious Head- atraumatic Eyes- PERRL, EOMI ENT- oropharynx clear, tongue midline Neck- supple, no JVD Lungs- clear to auscultation Heart- regular rhythm; no murmur Abdomen- normal bowel sounds, soft Extremities- no calf tenderness; peripheral pulses intact Neuro- alert, oriented x 3; PERRL, EOMI; no facial palsy, unable to keep his left extremity up steady able to resist when pushing down on all 4 extremities, able to use right hand to write his niece name and phone number legible Skin- warm & dry Laboratory Results: Last 24 Hours Test 08/02/17 16:51 08/02/17 16:52 08/02/17 17:03 08/02/17 19:11 White Blood Count 6.21 K/uL Red Blood Count 5.45 M/uL Hemoglobin 14.6 g/dL Hematocrit 44.3 % Mean Corpuscular Volume 81.3 fL Mean Corpuscular Hemoglobin 26.8 pg Mean Corpuscular Hemoglobin Concent 33.0 g/dl Platelet Count 191 K/uL Mean Platelet Volume 10.2 fL RDW Standard Deviation 38.2 fL RDW Coefficient of Variation 12.9 % Neutrophils % (Manual) 22.6 % Lymphocytes % (Manual) 44.3 % Variant Lymphocytes % (manual) 5.2 % Monocytes % (Manual) 8.7 % Eosinophils % (Manual) 3.5 % Blast Cells % 0.9 % Neutrophils # (Manual) 1.40 K/uL Total Absolute Neutrophils 1.40 K/uL Lymphocytes # (Manual) 2.75 K/uL Absolute Variant Lymphocytes 0.32 K/uL Total Absolute Lymphocytes 3.99 K/uL Monocytes # (Manual) 0.54 K/uL Eosinophils # (Manual) 0.22 K/uL Percent Large Granular Lymphocytes 14.8 % Absolute Large Granular Lymphocytes 0.92 K/uL Blast Cells # 0.06 K/uL Red Blood Cell Morphology Unremarkable Prothrombin Time 10.3 SECONDS Prothromb Time International Ratio 1.0 Activated Partial Thromboplast Time 23.3 SECONDS Partial Thromboplastin Ratio 0.9 Sodium Level 138 mmol/L Potassium Level 3.6 mmol/L Chloride Level 102 mmol/L Carbon Dioxide Level 28 mmol/L Anion Gap 8.0 mmol/L Blood Urea Nitrogen 18 mg/dl Creatinine 1.48 mg/dl Est Creatinine Clear Calc Drug Dose 46.8 ml/min Estimated GFR () 57.9 Estimated GFR (Non- 50.0 BUN/Creatinine Ratio 11.8 Random Glucose 158 mg/dl Calcium Level 9.1 mg/dl Magnesium Level 2.3 mg/dl Total Creatine Kinase 320 U/L Creatine Kinase MB 4.5 ng/ml Creatine Kinase MB Ratio 1.4 Troponin I < 0.015 ng/ml Chemistry Specimen Hemolysis Bedside Glucose 156 mg/dl Bedside Prothrombin Time INR 1.0 Erythrocyte Sedimentation Rate 11 mm/hr Estimated Average Glucose 143 mg/dl Hemoglobin A1c 6.6 % Vitamin B12 Level 542 pg/mL Folate 8.38 ng/mL Test 08/03/17 07:00 08/03/17 07:55 Sodium Level 139 mmol/L Potassium Level 3.9 mmol/L Chloride Level 106 mmol/L Carbon Dioxide Level 27 mmol/L Anion Gap 6.0 mmol/L Blood Urea Nitrogen 16 mg/dl Creatinine 0.94 mg/dl Est Creatinine Clear Calc Drug Dose 72.3 ml/min Estimated GFR () 100.3 Estimated GFR (Non- 86.5 BUN/Creatinine Ratio 17.2 Random Glucose 104 mg/dl Calcium Level 8.3 mg/dl Triglycerides Level 154 mg/dl Cholesterol Level 181 mg/dl HDL Cholesterol 43 mg/dl LDL Cholesterol, Calculated 107 mg/dl VLDL Cholesterol, Calculated 31 mg/dl Cholesterol/HDL Ratio 4.2 Urine Color YELLOW Urine Appearance CLEAR Urine pH 5.5 Urine Specific [place] 1.020 Urine Protein NEG Urine Glucose (UA) NEG Urine Ketones NEG Urine Occult Blood NEG Urine Nitrite NEG Urine Bilirubin NEG Urine Urobilinogen NEG Urine Leukocyte Esterase NEG Urine Opiates Screen NEG Urine Methadone, Qualitative NEG Urine Barbiturates NEG Urine Phencyclidine (PCP) Level NEG Ur Amphetamine/Methamphetamine NEG MDMA (Ecstasy) Screen NEG Urine Benzodiazepines Screen NEG Urine Cocaine Metabolite NEG Urine Marijuana (THC) POS Assessment & Plan Stroke like symptoms Presented with sudden loss of articulation, blurred vision , flashing lights , tremor in extremities Possible related to migraine vs TIA VS Seizure vs conversion disorder R/O CVA CTA head showed no evidence of hemorrhage, mass effect, or acute territorial ischemia by CT criteria. CTA neck showed no unremarkable CT angiogram of the neck. The vertebral arteries are widely patent and codominant. MRI of the head showed no acute intracranial abnormality. No evidence of acute or subacute infarction. 12 mm focus of marrow replacement involving the right temporal bone. Case discussed with Dr. Neurology Dr. Ely Continue PT/OT No arrhythmia activity on tele monitor Continue Asa daily LDL 107, chol 180 Neuro check Folate, B12 wnl Diabetes Hba1c 6.6 Lifestyle modification with low Carb and limited concentrated sugar Check HBa1c in 3-6 months SIGRID : Cr elevated 1.6 possible due to dehydration Creatine 0.9 today Stable FULL CODE DVT PROPHYLAXIS sub q heparin DISPOSITION : expected to be discharged home when medically stable Medicine follow up with [facility] Consultants: Neuro Current Inpatient Medications: Current Inpatient Medications Medications (Trade) Dose Ordered Sig/Alex Route Start Time Stop Time Status Last Admin Dose Admin Ioversol (Optiray 320) 100 ml UD PRN IV 08/02/17 18:30 08/06/17 18:29 Miscellaneous (Iv Fluids Completed) 1 ea PRN PRN N/A 08/02/17 19:00 08/02/18 18:59 Fexofenadine HCl (Patricia Tab) 180 mg DAILY PRN PO 08/02/17 19:00 09/01/17 18:59 Heparin Sodium (Porcine) (Heparin Sq 5000 Unit/0.5ml) 5,000 unit Q8 SQ 08/02/17 22:00 09/01/17 21:59 08/03/17 06:49 5,000 UNIT Acetaminophen (Tylenol Tab) 650 mg Q4H PRN PO 08/02/17 19:00 09/01/17 18:59 Al Hydrox/Mg Hydrox/Simethicone (Maalox Max Susp) 15 ml Q4H PRN PO 08/02/17 19:00 09/01/17 18:59 Magnesium Hydroxide (Milk Of Magnesia Susp) 30 ml Q12H PRN PO 08/02/17 19:00 09/01/17 18:59 Zolpidem Tartrate (Ambien Tab) 5 mg HSZ PRN PO 08/02/17 19:00 09/01/17 18:59 Ondansetron HCl (Zofran Inj) 4 mg Q6H PRN IV 08/02/17 19:00 09/01/17 18:59 Nitroglycerin (Nitrostat Tab) 0.4 mg UD PRN SL 08/02/17 19:00 09/01/17 18:59 Aspirin (Ecotrin Tab) 81 mg QAM PO 08/03/17 09:00 09/02/17 08:59 08/03/17 08:33 81 MG Polyethylene (Miralax Powder Packet) 17 gm DAILY PRN PO 08/02/17 19:00 09/01/17 18:59 Miscellaneous Information (Pharmacist Discharge Med Rec Consult) 1 ea UD PRN N/A 08/02/17 19:00 09/01/17 18:59
--- NOTE | 2017-08-03 11:57 | DIAGNOSTIC IMAGING REPORT ---
ADDENDUM Addendum: There is a 12 mm focus of marrow replacement involving the right temporal bone. There is no extracortical extension. This lesion is low signal on T1-weighted images and increased signal on T2-weighted images. The etiology of this lesion is not known. Impression #4: Indeterminate 12 mm focus of marrow replacement involving the right temporal bone. Electronically signed by: Fran Cardozo M.D. 08/03/2017 12:12 PM Dictated Date/Time: 08/03/2017 12:09 PM ORIGINAL REPORT MRI OF THE BRAIN WITHOUT CONTRAST CLINICAL HISTORY: Difficulty speaking. Possible stroke. COMPARISON STUDY: Noncontrast head CT dated 08/02/2017 FINDINGS: Sagittal T1, axial diffusion, proton density and T2 weighted axial, coronal FLAIR, and axial T1-weighted images were acquired. No intra or extra-axial mass lesions are visualized Axial diffusion-weighted images reveal no evidence of acute or subacute infarction. There is no evidence of ventricular dilatation. Proton density T2-weighted and FLAIR images reveal a few tiny foci of increased FLAIR signal within the white matter, likely a small vessel basis and not unexpected for age. There are no abnormal flow voids. IMPRESSION: 1. No acute intracranial findings 2. No evidence of acute or subacute infarction 3. No evidence of intracranial mass on this noncontrast study Electronically signed by: Fran Cardozo M.D. 08/03/2017 11:56 AM Dictated Date/Time: 08/03/2017 11:52 AM
[2017-08-03] MEDS ORDERED: GADAVIST IV PRN (13:30)
--- NOTE | 2017-08-03 14:02 | DIAGNOSTIC IMAGING REPORT ---
POSTCONTRAST MRI THE BRAIN CLINICAL HISTORY: 12 mm focus of marrow replacement/stroke like symptoms COMPARISON STUDY: Noncontrast study performed the same day. TECHNIQUE: MRI of the brain was performed from the vertex to the skull base utilizing various T1 and T2 weighted sequences. Following the IV administration of 7 mL of Gadavist contrast, additional enhanced images were obtained. FINDINGS: Postcontrast axial and coronal images were acquired. There are pathologically enhancing intra or extra-axial mass lesions. The previously described 12 mm focus of marrow replacement involving the right temporal bone demonstrates intense post gadolinium enhancement. IMPRESSION: 1. No pathologic enhancing brain masses 2. Intensely enhancing 12 mm focus of marrow replacement involving the right temporal bone. While the signal characteristics are consistent with a benign intraosseous hemangioma, other pathologic lesions could appear similar. Electronically signed by: Fran Cardozo M.D. 08/03/2017 2:01 PM Dictated Date/Time: 08/03/2017 1:56 PM
[2017-08-03 15:39] VITALS: BP 133/79; PULSE 60; TEMP 36.7; O2SAT 98
[2017-08-03 19:49] VITALS: BP 143/80; PULSE 63; TEMP 36.6; O2SAT 94
[2017-08-03 23:58] VITALS: BP 120/68; PULSE 63; TEMP 36.9; O2SAT 97
[2017-08-04 04:31] VITALS: BP 123/75; PULSE 74; TEMP 37; O2SAT 97
[2017-08-04] MEDS: HEPARIN SOD 5000 UNIT/0.5 ML CARP SQ SCH ×2 (06:04→14:51)
[2017-08-04 07:11] LABS: BUN/CREATININE RATIO 13.9 (10-20); CALCIUM 8.2 mg/dl (8.5-10.1); POTASSIUM 3.7 mmol/L (3.5-5.1)
--- NOTE | 2017-08-04 07:16 | CONSULTATION REPORT ---
DATE OF CONSULTATION: 08/03/2017 REQUESTING PHYSICIAN: David Morris MD HISTORY OF PRESENT ILLNESS: Hernan is 62 years old. He is right handed. He is from [facility] and speaks largely Georgian Creole, although he does have some command in Congolese. He was brought to the Emergency Room yesterday by his niece after at his place of work, he was found to be unable to talk directly and complaining of double vision and vertigo. He became very anxious apparently and was given Ativan prior to evaluation by Dr. Johnson. He has no clear history of medical problems other than DVT and takes no medications that I can elicit. He is followed by [facility] and has lived in various locations including [facility] and now here. He mentions something about being relocating to [place], but it is not very well explained at this point. I did get a chance to talk to his niece today who served as a neckties painter and apparently works at [employer] in housekeeping and is doing quite well. She relates a history that he talked about being dizzy, had some double vision, flashing lights, became tremulous and had shaking of both legs, but there was no actual loss of consciousness, no loss of continence and he had no abnormal involuntary movements other than what appeared to be a tremor. A stroke alert was called. It was felt that he was not a TPA candidate and the diagnosis was either that of a TIA or seizures. A head scan was negative. A CTA of the brain and neck revealed no pathology and he then became able to articulate, but has remained anxious and periodically agitated ever since and is tearful at times. SOCIAL HISTORY: Reveals that he is employed. He is not known to have been a smoker. He does not apparently consume ethanol. ALLERGIES: HE REPORTS ALLERGIES TO [facility]LL[facility]. He takes only as needed fexofenadine for allergies. PHYSICAL EXAMINATION: VITAL SIGNS: His blood pressure was 140/96, pulse was 96 and regular, and respirations were 19. GENERAL: He appeared drowsy due to the administration of Ativan. Otherwise, there were no abnormalities on examination of the cranium. HEENT: Examination was unremarkable. No carotid bruits were heard. LUNGS: Were clear. HEART: Had a regular rhythm. No murmurs were appreciated. EXTREMITIES: Free of edema. He had good pulses. NEUROLOGIC: Today, neurologically, he is awake, alert, periodically agitated and anxious, is often tearful and is clutching onto his niece frequently during the exam. His eye movements are normal. He has no gross visual field cuts that I can illicit. Facial motility and strength appeared to be normal. Facial sensation is grossly intact. Speech is difficult to assess. I do not think it is dysarthric. His niece thinks his speech is at baseline and he speaks in a mixture of Jamaican, Creole, and Congolese. I believe I had enough high points in the history to interpret it. There was no tremor, tics, or choreiform activity noted at rest, but during his anxiety, he became quite tremulous. He had no drift or pronation sign. Movement of the extremities were a little slow until he was encouraged to do so and he had a little trouble with his left arm with the IV in his antecubital fossa. He can move his extremities. His reflexes were 1+. Toes were downgoing. No Stacy's signs were seen. Strength testing as noted above was a little difficult because of cooperation issues and comprehension issues. He seemed to have intact sensation of vibration, but again a detailed sensory examination was not possible. At this point, I cannot tell whether this was a vertebrobasilar TIA, possibly a migraine headache, although he has never had these in the past and I really doubt this was a seizure. My one suggestion would be to have an MRI done with and without contrast just to be sure he does not have a series of vascular events involving the posterior circulation and I would also check an echo. We will see if Dr. Morris can convince him to have these studies done. I would obviously treat him with an aspirin at this point and I do not think we really need to go with dual antiplatelet therapy as we first off have no clear evidence that he has had a stroke and he was never on any antiplatelet agents before this. I will check back with him tomorrow. JEFFREY
[2017-08-04 07:22] VITALS: BP 124/75; PULSE 78; TEMP 36.8; O2SAT 94
[2017-08-04] MEDS: ASPIRIN 81 MG ECTAB PO SCH (08:22)
[2017-08-04 11:19] LABS: COMPLETE YES
[2017-08-04 11:20] LABS: VARIANT LYMPHOCYTE % 6.1 %
[2017-08-04 11:21] LABS: VARIANT LYM ABS # 0.38 K/uL
--- NOTE | 2017-08-04 11:45 | ECHOCARDIOGRAM REPORT ---
*NOTICE TO RECEIVING [employer] This information is strictly Confidential and protected under [place] law. [place] law prohibits you from making any further disclosure of this information unless further disclosure is expressly permitted by the written consent of the person to whom it pertains or is authorized by law. A general authorization for the release of medical or other information is not sufficient for this purpose. Hospital accepts no responsibility if the information is made available to any other person, INCLUDING THE PATIENT. Interpretation Summary * Name: RAIZA SÁNCHEZ Study Date: 08/04/2017 09:11 AM BP: 131/84 mmHg * Patient Location: C.2T\S\S231\S\1 HR: 82 * : 1955 (M/d/yyyy) Gender: Male Height: 63 in * Age: 62 yrs Ethnicity: AA Weight: 164 lb * Ordering Physician: Liz Thayer * Referring Physician: Self, Referred * Performed By: Latanya Barnes RCS * * Reason For Study: CEREBRAL ISCHEMIA / EMBOLUS * BSA: 1.8 m2 * No cardiac source of emboli noted. * -- Conclusions -- * No cardiac source of emboli noted. * Injection of contrast documented no interatrial shunt. * There is mild concentric left ventricular hypertrophy. * Ejection Fraction = 50-55%. * The right ventricular systolic function is normal. * No significant valvular pathology. Procedure Details * A complete two-dimensional transthoracic echocardiogram was performed (2D, M-mode, Doppler and color flow Doppler). * A saline contrast injection was performed to assess for cardiac shunting. * The injection was performed through an intravenous line in the left arm. * The attending nurse who injected the saline contrast was TASIA TRENT, RN. * A total of 20 cc of agitated saline was given. Left Ventricle * The left ventricle is normal in size. * There is no thrombus. * There is mild concentric left ventricular hypertrophy. * Left ventricular systolic function is normal. * Ejection Fraction = 50-55%. * The left ventricular wall motion is normal. Right Ventricle * The right ventricle is grossly normal size. * The right ventricular systolic function is normal. Atria * The left atrial size is normal. * Right atrial size is normal. * Injection of contrast documented no interatrial shunt. * Atrial septal aneurysm incidentally noted, with small, hemodynamically insigificant shunt. Consider daily aspirin for stroke prophylaxis. Closure not currently indicated. Mitral Valve * The mitral valve anatomy is normal. * Significant mitral regurgitation is absent. Tricuspid Valve * The tricuspid valve anatomy is normal. * Significant tricuspid regurgitation is absent. Aortic Valve * The aortic valve is normal in structure and function. Pulmonic Valve * The pulmonic valve is not well seen, but is grossly normal. * Mild pulmonic valvular regurgitation. Great Vessels * The aortic root and proximal ascending aorta are normal sized. Pericardium/Pleural * There is no pericardial effusion. MMode 2D Measurements and Calculations IVSd 1.2 cm IVSs 1.5 cm LVIDd 4.1 cm LVIDs 3.3 cm LVPWd 1.1 cm LVPWs 1.1 cm IVS/LVPW 1.1 FS 19.4 % EDV(Teich) 73.8 ml ESV(Teich) 44.1 ml EF(Teich) 40.3 % EDV(cubed) 68.5 ml ESV(cubed) 35.9 ml EF(cubed) 47.5 % % IVS thick 28.4 % % LVPW thick 0.09 % LV mass(C)d 159.5 grams LV mass(C)dI 89.7 grams/m\S\2 LV mass(C)s 143.6 grams LV mass(C)sI 80.8 grams/m\S\2 SV(Teich) 29.7 ml SI(Teich) 16.7 ml/m\S\2 SV(cubed) 32.6 ml SI(cubed) 18.3 ml/m\S\2 Ao root diam 2.7 cm Ao root area 5.8 cm\S\2 ACS 2.0 cm LA dimension 3.2 cm LA/Ao 1.2 LVOT diam 1.9 cm LVOT area 2.8 cm\S\2 LVAd ap4 31.0 cm\S\2 LVLd ap4 7.5 cm EDV(MOD-sp4) 100.0 ml EDV(sp4-el) 108.0 ml LVAs ap4 19.9 cm\S\2 LVLs ap4 6.1 cm ESV(MOD-sp4) 53.7 ml ESV(sp4-el) 55.1 ml EF(MOD-sp4) 46.3 % EF(sp4-el) 49.0 % LVAd ap2 30.3 cm\S\2 LVLd ap2 7.6 cm EDV(MOD-sp2) 98.5 ml EDV(sp2-el) 102.3 ml LVAs ap2 18.9 cm\S\2 LVLs ap2 6.2 cm ESV(MOD-sp2) 48.0 ml ESV(sp2-el) 48.9 ml EF(MOD-sp2) 51.2 % EF(sp2-el) 52.2 % LVLd %diff 1.2 % EDV(MOD-bp) 99.6 ml LVLs %diff 1.9 % ESV(MOD-bp) 50.6 ml EF(MOD-bp) 49.2 % SV(MOD-sp4) 46.3 ml SI(MOD-sp4) 26.1 ml/m\S\2 SV(MOD-sp2) 50.5 ml SI(MOD-sp2) 28.4 ml/m\S\2 SV(MOD-bp) 49.0 ml SI(MOD-bp) 27.6 ml/m\S\2 SV(sp4-el) 52.9 ml SI(sp4-el) 29.7 ml/m\S\2 SV(sp2-el) 53.4 ml SI(sp2-el) 30.0 ml/m\S\2 Doppler Measurements and Calculations MV P1/2t max norman 67.3 cm/sec MV P1/2t 77.9 msec MVA(P1/2t) 2.8 cm\S\2 MV dec slope 252.9 cm/sec\S\2 Ao V2 max 131.1 cm/sec Ao max PG 6.9 mmHg Ao max PG (full) 3.2 mmHg DARIUS(V,A) 2.0 cm\S\2 DARIUS(V,D) 2.0 cm\S\2 LV V1 max PG 3.7 mmHg LV V1 max 96.0 cm/sec PA V2 max 131.1 cm/sec PA max PG 6.9 mmHg
[2017-08-04 11:58] VITALS: BP 122/76; PULSE 67; TEMP 36.5; O2SAT 97
--- NOTE | 2017-08-04 12:38 | Progress Note ---
Medicine Progress Note Date & Time of Visit: Aug 04, 2017 at 12:09. Subjective Pt was seen and examined Lying in bed with no distress Pt continue to stutter when speaking but the more I talked to him, his speech became fluent few times for about 15 seconds usually when he tried to tell me some stories back home in [facility] or when we joked about stuff in [facility] Pt said that He got his strength back He said that he feels like he can lift anything now He denies any chest pain, palpitation, dizziness and SOB Objective Last 8 Hrs Date Time Temp Pulse Resp B/P (MAP) Pulse Ox O2 Delivery O2 Flow Rate FiO2 08/04/17 11:58 36.5 67 18 122/76 (91) 97 08/04/17 08:00 Room Air 08/04/17 07:22 36.8 78 18 124/75 (91) 94 Room Air 08/04/17 04:31 37.0 74 17 123/75 (91) 97 Room Air Physical Exam: General- No acute distress, very anxious Head- atraumatic Eyes- PERRL, EOMI ENT- oropharynx clear, tongue midline Neck- supple, no JVD Lungs- clear to auscultation Heart- regular rhythm; no murmur Abdomen- normal bowel sounds, soft Extremities- no calf tenderness; peripheral pulses intact Neuro- alert, oriented x 3; PERRL, EOMI; no facial palsy, unable to keep his left extremity up steady able to resist when pushing down on all 4 extremities, able to use right hand to write his niece name and phone number legible Skin- warm & dry Laboratory Results: Last 24 Hours Test 08/04/17 06:26 Sodium Level 138 mmol/L Potassium Level 3.7 mmol/L Chloride Level 103 mmol/L Carbon Dioxide Level 27 mmol/L Anion Gap 8.0 mmol/L Blood Urea Nitrogen 14 mg/dl Creatinine 1.00 mg/dl Est Creatinine Clear Calc Drug Dose 68.0 ml/min Estimated GFR () 93.1 Estimated GFR (Non- 80.3 BUN/Creatinine Ratio 13.9 Random Glucose 106 mg/dl Calcium Level 8.2 mg/dl Assessment & Plan Stroke like symptoms Presented with sudden loss of articulation, blurred vision , flashing lights , tremor in extremities Doubt about migraine vs TIA VS Seizure Possible related to conversion disorder VS malingering? No hx of seizure or migraine CTA head showed no evidence of hemorrhage, mass effect, or acute territorial ischemia by CT criteria. CTA neck showed no unremarkable CT angiogram of the neck. The vertebral arteries are widely patent and codominant. MRI of the head showed no acute intracranial abnormality. No evidence of acute or subacute infarction. 12 mm focus of marrow replacement involving the right temporal bone. consistent with a benign intraosseous hemangioma Case discussed with Dr. Neurology Dr. Ely yesterday Continue PT/OT No arrhythmia activity on tele monitor Did well with physical therapy with no assistance Continue Asa daily LDL 107, chol 180 Folate, B12 wnl EEG showed no seizure activity His speech improved significantly almost back to normal If speech does not improve, recommend speech therapy follow up as outpatient case discussed with DR. Norris, rosita to discharge home on aspirin Might consider to get another MRI in the future to see if he has had any evidence for a delayed ischemic event Follow up with neurology in 1 month. Diabetes Hba1c 6.6 Lifestyle modification with low Carb and limited concentrated sugar Check HBa1c in 3-6 months SIGRID : Cr elevated 1.6 possible due to dehydration Creatine 1.0 Stable FULL CODE DVT PROPHYLAXIS sub q heparin DISPOSITION : Medicine follow up with [facility] Discharge home today Consultants: Neuro Current Inpatient Medications: Current Inpatient Medications Medications (Trade) Dose Ordered Sig/Alex Route Start Time Stop Time Status Last Admin Dose Admin Ioversol (Optiray 320) 100 ml UD PRN IV 08/02/17 18:30 08/06/17 18:29 Miscellaneous (Iv Fluids Completed) 1 ea PRN PRN N/A 08/02/17 19:00 08/02/18 18:59 Fexofenadine HCl (Patricia Tab) 180 mg DAILY PRN PO 08/02/17 19:00 09/01/17 18:59 Heparin Sodium (Porcine) (Heparin Sq 5000 Unit/0.5ml) 5,000 unit Q8 SQ 08/02/17 22:00 09/01/17 21:59 08/04/17 06:04 5,000 UNIT Acetaminophen (Tylenol Tab) 650 mg Q4H PRN PO 08/02/17 19:00 09/01/17 18:59 Al Hydrox/Mg Hydrox/Simethicone (Maalox Max Susp) 15 ml Q4H PRN PO 08/02/17 19:00 09/01/17 18:59 Magnesium Hydroxide (Milk Of Magnesia Susp) 30 ml Q12H PRN PO 08/02/17 19:00 09/01/17 18:59 Zolpidem Tartrate (Ambien Tab) 5 mg HSZ PRN PO 08/02/17 19:00 09/01/17 18:59 Ondansetron HCl (Zofran Inj) 4 mg Q6H PRN IV 08/02/17 19:00 09/01/17 18:59 Nitroglycerin (Nitrostat Tab) 0.4 mg UD PRN SL 08/02/17 19:00 09/01/17 18:59 Aspirin (Ecotrin Tab) 81 mg QAM PO 08/03/17 09:00 09/02/17 08:59 08/04/17 08:22 81 MG Polyethylene (Miralax Powder Packet) 17 gm DAILY PRN PO 08/02/17 19:00 09/01/17 18:59 Miscellaneous Information (Pharmacist Discharge Med Rec Consult) 1 ea UD PRN N/A 08/02/17 19:00 09/01/17 18:59 Gadobutrol (Gadavist) 7 mmol UD PRN IV 08/03/17 13:30 08/07/17 13:29
--- NOTE | 2017-08-04 14:05 | ELECTROENCEPHALOGRAPH REPORT ---
REQUESTED BY: Dr. Thayer. CLINICAL DIAGNOSIS: Single episode of dysarthria, diplopia and visual obscurations with headache, question seizure activity. EEG DIAGNOSIS: Essentially normal during wakefulness. DESCRIPTION OF TRACING: This EEG done at the bedside is of excellent technical quality with few or no muscle movement artifacts. Drowsiness and light sleep are not obtained. Photic stimulation was performed, hyperventilation was not. Under these conditions, there is evidence for normal appearing background rhythm in the alpha range of up to 10 Hz of maximum frequency and 30 microvolts of maximum amplitude. This maximum posterior head regions and bilaterally symmetrical. Polymorphic mid frequency theta activity is seen over all head regions without clear focal regional predominance. Anterior head region maximum bilaterally symmetrical low voltage fast activity in the beta range is present. Photic stimulation provokes modest driving response without a myasthenic or photoparoxysmal component. At no time during the waking tracing is there evidence for potentially epileptogenic activity in the form of polyspike or spike wave bursts, focal sharp waves or focal spikes. INTERPRETATION: This electroencephalogram is essentially normal during wakefulness without evidence for focal or generalized encephalopathy and without evidence for potentially epileptogenic activity. MTDD
[2017-08-04 15:42] VITALS: BP 124/73; PULSE 65; TEMP 36.5; O2SAT 97
[2017-08-04 16:15] VITALS: BP 122/76; PULSE 65; TEMP 36.5; O2SAT 97
--- NOTE | 2017-08-04 16:17 | PROGRESS NOTE ---
DATE: 08/04/2017 Hernan looks much better today. He is not anxious, tearful, tries to converse and actually does fairly well, using Afghan and does rely on his Creaole as much as yesterday. He is headache free. He ahas no more diplopia. His speech is still stuttering in quality, but there are no issues with word finding and on rapid phonation of vowels and consenents, he has done well. He can write his name and comprehension is intact, so this is nonspecific picture and I do think it reflects any underlying organic central nervous system disease. 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 I asked him today if he has ever had migraine headaches and the response was negative. I asked him about prior anxiety attacks and response was negative but again I have no way corroborating this. The diagnosis remains unclear. This could have been a TIA/reversible ischemic neurologic deficit, but we do not see anything on MRI. The vascular studies of the intracranial circulation and extracranial circulation are normal and echo shows nothing of significance and EEG more importantly is negative, even though the picture was really not that of a seizure. At this point, if he is felt stable to be discharged, I would send him out for the [facility], but I would put him on a baby aspirin a day just to be on the safe side. I suppose neurology can follow up on him and perhaps consider doing another MRI at some point in the future to see if he has had any evidence for a delayed ischemic event, but frankly from an anatomic point review I am not sure what we would could explain the stuttering as this looks more like a functional issue than an organic one. The decision is up to Dr. Morris regarding discharge today, but I certainly would support as the man looks clinically asymptomatic. JEFFREY
[2017-08-04] MEDS ORDERED: ASPEC81 PO (16:27)
--- NOTE | 2017-08-04 16:41 | Discharge Instructions ---
Discharge Instructions Date of Service Aug 04, 2017. Admission Reason for Admission: Stroke like symptoms Discharge Discharge Diagnosis / Problem: Stroke like symptoms with difficulty speaking Discharge Goals Goal(s): Decrease discomfort, Improve function, Improve disease control Activity Recommendations Activity Limitations: resume your previous activity (as tolerated) . Instructions / Follow-Up Instructions / Follow-Up Follow up with your primary care physician at [facility] ( Already had appointment schedule on 08/15) Call to schedule a follow up appointment with Neurology Dr. Norris in 1 month Address: [address] [place], [place] [address]sammi Martinez, [place] [address] Follow up a healthy diabetes diet with low Carb and limited concentrated sugar intake Check HBA1C in 3-6 months Current Hospital Diet Patient's current hospital diet: AHA Diet (Heart Healthy) Discharge Diet Recommended Diet: AHA Diet (Heart Healthy) Pending Studies Studies pending at discharge: no Laboratory Results Hemoglobin A1c Test 08/02/17 19:11 Range/Units Estimated Average Glucose 143 mg/dl Hemoglobin A1c 6.6 H 4.5-5.6 % Lipid Panel Test 08/03/17 07:00 Range/Units Triglycerides Level 154 H 0-150 mg/dl Cholesterol Level 181 0-200 mg/dl HDL Cholesterol 43 mg/dl Cholesterol/HDL Ratio 4.2 LDL Cholesterol, Calculated 107 mg/dl Medical Emergencies . Who to Call and When: Medical Emergencies: If at any time you feel your situation is an emergency, please call 911 immediately. . Non-Emergent Contact Non-Emergency issues call your: Primary Care Provider Call Non-Emergent contact if: you have any medication questions . . "Provider Documentation" section prepared by David Morris. . VTE Core Measure Inpt VTE Proph given/why not?: Unfractionated heparin LOLITA, TRaulEStone Pinzon
--- NOTE | 2017-08-11 09:02 | Discharge Summary ---
Discharge Summary Date of Service Aug 11, 2017. Discharge Summary Admission Date: Aug 02, 2017 at 18:40 Discharge Date: Aug 04, 2017 Discharge Disposition: Home Principal Diagnosis: Stroke Like symptoms Secondary Diagnoses/Problems: SIGRID Substance Abuse Procedures: [~ rep ct add3]] POSTCONTRAST MRI THE BRAIN CLINICAL HISTORY: 12 mm focus of marrow replacement/stroke like symptoms COMPARISON STUDY: Noncontrast study performed the same day. TECHNIQUE: MRI of the brain was performed from the vertex to the skull base utilizing various T1 and T2 weighted sequences. Following the IV administration of 7 mL of Gadavist contrast, additional enhanced images were obtained. FINDINGS: Postcontrast axial and coronal images were acquired. There are pathologically enhancing intra or extra-axial mass lesions. The previously described 12 mm focus of marrow replacement involving the right temporal bone demonstrates intense post gadolinium enhancement. IMPRESSION: 1. No pathologic enhancing brain masses 2. Intensely enhancing 12 mm focus of marrow replacement involving the right temporal bone. While the signal characteristics are consistent with a benign intraosseous hemangioma, other pathologic lesions could appear similar. Electronically signed by: Fran Cardozo M.D. 08/03/2017 2:01 PM Dictated Date/Time: 08/03/2017 1:56 PM ADDENDUM Addendum: There is a 12 mm focus of marrow replacement involving the right temporal bone. There is no extracortical extension. This lesion is low signal on T1-weighted images and increased signal on T2-weighted images. The etiology of this lesion is not known. Impression #4: Indeterminate 12 mm focus of marrow replacement involving the right temporal bone. Electronically signed by: Fran Cardozo M.D. 08/03/2017 12:12 PM Dictated Date/Time: 08/03/2017 12:09 PM ORIGINAL REPORT MRI OF THE BRAIN WITHOUT CONTRAST CLINICAL HISTORY: Difficulty speaking. Possible stroke. COMPARISON STUDY: Noncontrast head CT dated 08/02/2017 FINDINGS: Sagittal T1, axial diffusion, proton density and T2 weighted axial, coronal FLAIR, and axial T1-weighted images were acquired. No intra or extra-axial mass lesions are visualized Axial diffusion-weighted images reveal no evidence of acute or subacute infarction. There is no evidence of ventricular dilatation. Proton density T2-weighted and FLAIR images reveal a few tiny foci of increased FLAIR signal within the white matter, likely a small vessel basis and not unexpected for age. There are no abnormal flow voids. IMPRESSION: 1. No acute intracranial findings 2. No evidence of acute or subacute infarction 3. No evidence of intracranial mass on this noncontrast study Electronically signed by: Fran Cardozo M.D. 08/03/2017 11:56 AM Dictated Date/Time: 08/03/2017 11:[address] ANGIOGRAM OF THE BRAIN; CT ANGIOGRAM OF THE NECK CLINICAL HISTORY: Strokelike symptoms. COMPARISON STUDY: Unenhanced CT scan of the brain dated 08/02/2017. TECHNIQUE: Following the IV administration of 115 of Optiray 320, CT angiogram of the head and neck was performed from the aortic arch to the vertex. Images are reviewed in the axial, sagittal, and coronal planes. 3-D MIPS images are created and assessed. IV contrast was administered without complication. All measurements were calculated based on NASCET criteria. A dose lowering technique was utilized adhering to the principles of ALARA. CT DOSE: 548.29 mGy.cm FINDINGS: Brain parenchyma: The brain parenchyma is normal in appearance. There is no hemorrhage, mass effect, or evidence of acute territorial ischemia by CT criteria. There is no evidence of enhancing mass lesion on the angiogram phase images. The ventricles, sulci, and cisterns are normal in configuration. Akhtar-white matter differentiation is preserved. No extra-axial fluid collection is seen. Thoracic aorta: Visualized portions of the thoracic aorta are normal in caliber. The aortic arch demonstrates standard 3-vessel anatomy. Right carotid arterial system: The right common carotid artery is widely patent, as are the right internal and external carotid arteries. Left carotid arterial system: The left common carotid artery is widely patent, as are the left internal and external carotid arteries. Vertebral arteries: Subclavian arteries: Widely patent bilaterally. Intracranial vasculature: The internal carotid arteries are patent at the skull base, as are the anterior and middle cerebral arteries bilaterally. The vertebrobasilar system and posterior cerebral arteries are widely patent. The vertebral arteries are codominant. There is no aneurysm, high-grade stenosis, or focal vessel cut off seen throughout the intracranial circulation. Jugular veins: Widely patent bilaterally. Dural sinuses: Patent. Lung apices: Partially visualized upper lobe lung parenchyma appears clear. Soft tissues: The visualized pharyngeal soft tissues are normal in appearance noting angiographic phase technique. The oropharyngeal airway appears widely patent. The salivary and thyroid glands are normal in appearance. No cervical lymphadenopathy is seen. Orbits: The bony orbits are grossly intact. Orbital contents are normal in appearance. Skeletal structures: The calvarium appears maintained. The cervical spine is intact noting mild spondylotic change. Sinuses and mastoids: There is subtotal opacification of the left maxillary antrum. The remaining paranasal sinuses are clear. The mastoid air cells are well pneumatized. IMPRESSION: 1. There is no evidence of hemorrhage, mass effect, or acute territorial ischemia by CT criteria. 2. Unremarkable CT angiogram of the brain. 3. Unremarkable CT angiogram of the neck. The vertebral arteries are widely patent and codominant. 4. Left maxillary sinus disease as above. Electronically signed by: Elio Bell M.D. 08/02/2017 6:54 PM Dictated Date/Time: 08/02/2017 6:47 PM Consultations: Neuro Medication Reconciliation New Medications: Aspirin (Aspirin EC Low Dose) 81 Mg Ectab 81 MG PO QAM for 30 Days Continued Medications: Fexofenadine HCl (Allergy 24-Hr) 180 Mg Tab 180 MG PO DAILY PRN for ALLERGIC REACTION Admission Information HPI (per Admitting provider): This is a 62 yo M with no known medical hx Speaks in Creole Language only , is brought to ER by Niece as pt was found not able to talk History obtained mainly form the Niece over phone, as pt was not able to communicated, was also very somnolent ( given Ativan earlier for severe anxiety ) Per Niece -at baseline pt is very active, works as a housekeeping in [employer] this morning -pt reported that he was not feeling well , feeling dizzy , called niece over phone -that he was having difficulty speaking Pt complained of double vision , flashing lights , had tremors , shaking of both legs no tongue biting , no bowel or bladder incontinence , could not articulate words -later he explained the as if his tongue was stick to bottom In ER ' Stroke Alert was called , pt evaluated by [facility] stroke unit -pt was able to move hands , and legs , still was having significant dysarthria no report of Headache thought of be either TIA vs Seizure CT head was negative , CTA angiogram of brain and neck -no pathology noted later pt was able to talk and articulate, per niece -no confusion was noted , was able to converse appropriately , got very anxious requiring Ativan Physical Exam (per Admitting): General Appearance: no apparent distress, + pertinent finding (VERY DOWSY , SOMNOLENT , OPENES EYES BRIEFLY THEN FALLS TO SLEEP ) Head: normocephalic, atraumatic Eyes: + pertinent finding (UNABLE TO EXAMINE -PT WAS DROWSY , COULD NOT KEEP EYES OPEN ) ENT: hearing grossly normal Neck: thyroid normal Respiratory/Chest: lungs clear, normal breath sounds, no respiratory distress Cardiovascular: regular rate, rhythm, no edema Abdomen/GI: normal bowel sounds, soft Extremities/Musculoskelatal: normal capillary refill, no pedal edema, + pertinent finding (MOVING ALL EXTREMITIES ) Neurologic/Psych: + pertinent finding (SOMNOLENT , MOVING ALL EXTREMITITES , ) Hospital Course Stroke like symptoms Presented with sudden loss of articulation, blurred vision , flashing lights , tremor in extremities Doubt about migraine vs TIA VS Seizure Possible related to conversion disorder VS malingering? No hx of seizure or migraine CTA head showed no evidence of hemorrhage, mass effect, or acute territorial ischemia by CT criteria. CTA neck showed no unremarkable CT angiogram of the neck. The vertebral arteries are widely patent and codominant. MRI of the head showed no acute intracranial abnormality. No evidence of acute or subacute infarction. 12 mm focus of marrow replacement involving the right temporal bone. consistent with a benign intraosseous hemangioma Case discussed with DrRaul Neurology Dr. Ely yesterday Continue PT/OT No arrhythmia activity on tele monitor Did well with physical therapy with no assistance Continue Asa daily LDL 107, chol 180 Folate, B12 wnl EEG showed no seizure activity His speech improved significantly almost back to normal If speech does not improve, recommend speech therapy follow up as outpatient case discussed with rosita Chowdhury to discharge home on aspirin Might consider to get another MRI in the future to see if he has had any evidence for a delayed ischemic event Follow up with neurology in 1 month. Diabetes Hba1c 6.6 Lifestyle modification with low Carb and limited concentrated sugar Check HBa1c in 3-6 months SIGRID : Cr elevated 1.6 possible due to dehydration Creatine 1.0 Stable Substance Abuse Urine toxicology positive for marijuana Counselling pt to stop FULL CODE DVT PROPHYLAXIS sub q heparin DISPOSITION : Medicine follow up with [facility] Discharge home today Total time spent on discharge = 35 minutes This includes examination of the patient, discharge planning, medication reconciliation, and communication with other providers. Discharge Instructions Discharge Instructions Date of Service Aug 04, 2017. Admission Reason for Admission: Stroke like symptoms Discharge Discharge Diagnosis / Problem: Stroke like symptoms with difficulty speaking Discharge Goals Goal(s): Decrease discomfort, Improve function, Improve disease control Activity Recommendations Activity Limitations: resume your previous activity (as tolerated) . Instructions / Follow-Up Instructions / Follow-Up Follow up with your primary care physician at [facility] ( Already had appointment schedule on 08/15) Call to schedule a follow up appointment with Neurology Dr. Norris in 1 month Address: [address], [place] [address] Follow up a healthy diabetes diet with low Carb and limited concentrated sugar intake Check HBA1C in 3-6 months Current Hospital Diet Patient's current hospital diet: AHA Diet (Heart Healthy) Discharge Diet Recommended Diet: AHA Diet (Heart Healthy) Pending Studies Studies pending at discharge: no Laboratory Results Hemoglobin A1c Test 08/02/17 19:11 Range/Units Estimated Average Glucose 143 mg/dl Hemoglobin A1c 6.6 H 4.5-5.6 % Lipid Panel Test 08/03/17 07:00 Range/Units Triglycerides Level 154 H 0-150 mg/dl Cholesterol Level 181 0-200 mg/dl HDL Cholesterol 43 mg/dl Cholesterol/HDL Ratio 4.2 LDL Cholesterol, Calculated 107 mg/dl Medical Emergencies . Who to Call and When: Medical Emergencies: If at any time you feel your situation is an emergency, please call 911 immediately. . Non-Emergent Contact Non-Emergency issues call your: Primary Care Provider Call Non-Emergent contact if: you have any medication questions . . "Provider Documentation" section prepared by David Morris. . VTE Core Measure Inpt VTE Proph given/why not?: Unfractionated heparin LOLITA, TVan Pinzon
== END 2017-08-04 18:24 | disposition home or self-care (01) ==
LOC: EDBD 16:43 → C.EDB 16:44 → C.2T 18:40 → ENRESERV 18:57
PROVIDERS: ADMIT Hospitalist; ATTEND Internal Medicine
DX: R47.9 Unspecified speech disturbances (principal); R40.0 Somnolence; H53.8 Other visual disturbances; R25.1 Tremor, unspecified; N17.9 Acute kidney failure, unspecified; F19.10 Other psychoactive substance abuse, uncomplicated; F41.9 Anxiety disorder, unspecified; Z86.718 Personal history of other venous thrombosis and embolism; Z86.73 Personal history of transient ischemic attack (TIA), and cerebral infarction without residual deficits